=== PATIENT | male | born 1945 | race Caucasian/White ===

== ENCOUNTER 2016-04-11 07:05 | Outpatient (CLI) | payer MEDICARE | END 2016-04-11 07:06 | disposition home or self-care (01) | LOC: NAV LABSP 07:05 | PROVIDERS: ATTEND Internal Medicine | DX: F31.9 Bipolar disorder, unspecified (principal) | CPT/HCPCS: 36415; 84443 ==

== ENCOUNTER 2016-04-14 13:28 | Outpatient (CLI) | payer MEDICARE ==
[2016-04-14 13:48] LABS: Bilirubin Negative (Negative); Blood, Urine Negative (Negative); Glucose, Urine (Dipstick) Negative (Negative); Ketone, Urine Negative (Negative); Nitrite Negative (Negative); Protein, Urine (Dipstick) Negative (Neg-Trace); Urobilinogen 0.2 mg/dL (0.2-1.0)
[2016-04-14 14:14] LABS: Bacteria/HPF Rare-Few HPF (None Seen); RBC/HPF None Seen HPF (0-3); Squamous Epithelial None Seen HPF (0-3); WBC/HPF None Seen HPF (0-3)
== END 2016-04-14 13:29 | disposition home or self-care (01) ==
LOC: NAV NNR 13:28
PROVIDERS: ATTEND Internal Medicine
DX: N39.0 Urinary tract infection, site not specified (principal)
CPT/HCPCS: 81001; 87086

== ENCOUNTER 2016-07-10 15:55 | Outpatient (CLI) | payer MEDICARE ==
[2016-07-10 16:22] LABS: ALT (SGPT) 28 U/L (0-55); AST (SGOT) 23 U/L (5-34); Albumin 3.4 g/dL (3.4-4.8); Alkaline Phosphatase 98 U/L (40-150); Anion Gap 15 mmol/L (10-20); BUN (Urea Nitrogen) 17 mg/dL (8.4-25.7); Bilirubin, Total 0.2 mg/dL (0.2-1.2); Calc. Creatinine Clearance 0 mL/min (70-130); Calcium 8.3 mg/dL (7.8-10.44); Carbon Dioxide 26 mmol/L (23-31); Chloride 106 mmol/L (98-107); Estimated GFR-MDRD Greater than 90; Globulin 2.4 g/dL (2.4-3.5); Glucose 93 mg/dL (83-110); Potassium 4.5 mmol/L (3.5-5.1); Protein, Total 5.8 g/dL (5.8-8.1); Sodium 142 mmol/L (136-145)
[2016-07-10 16:59] LABS: #Basophils 0.1 thou/uL (0.0-0.2); #Eosinphils 0.4 thou/uL (0.0-0.7); #Lymphocytes 2.8 thou/uL (1.20-3.40); #Monocytes 0.8 thou/uL (0.11-0.59); #Neutrophils 2.2 thou/uL (1.40-6.50); %Basophils 1.1 % (0.0-1.0); %Eosinophils 6.5 % (0.0-10.0); %Lymphocytes 44.7 % (21.0-51.0); %Neutrophils 35.7 % (42.0-75.0); Hemoglobin 12.8 g/dL (14.0-18.0); Mean Corpuscular HGB CONC 32.1 g/dL (32.0-36.0); Mean Corpuscular Hemoglobin 31.5 pg (27.0-31.0); Mean Corpuscular Volume 98.1 fl (80.0-94.0); Mean Platelet Volume 8.4 fL (7.4-10.4); Platelet Count 172 thou/uL (130-400); RBC Distribution Width 13.1 % (11.5-14.5); Red Blood Cell (RBC) Count 4.07 mill/uL (4.70-6.10); White Blood Cell (WBC) Count 6.3 thou/uL (4.8-10.8)
== END 2016-07-10 15:56 ==
LOC: NAV NNR 15:55
PROVIDERS: ATTEND Internal Medicine
DX: E78.5 Hyperlipidemia, unspecified (principal); E51.2 Wernicke's encephalopathy; J44.9 Chronic obstructive pulmonary disease, unspecified
CPT/HCPCS: 80053; 84443; 85025

== ENCOUNTER 2016-08-16 09:30 | Outpatient (CLI) | payer MEDICARE ==
[2016-08-16 11:36] LABS: #Basophils 0.1 thou/uL (0.0-0.2); #Eosinphils 0.3 thou/uL (0.0-0.7); #Lymphocytes 2.6 thou/uL (1.20-3.40); #Monocytes 0.7 thou/uL (0.11-0.59); #Neutrophils 2.2 thou/uL (1.40-6.50); %Basophils 1.8 % (0.0-1.0); %Eosinophils 5.4 % (0.0-10.0); %Lymphocytes 43.7 % (21.0-51.0); %Monocytes 11.2 % (0.0-10.0); Hemoglobin 12.9 g/dL (14.0-18.0); Mean Corpuscular Hemoglobin 31.7 pg (27.0-31.0); Mean Platelet Volume 8.4 fL (7.4-10.4); Platelet Count 179 thou/uL (130-400); RBC Distribution Width 13.2 % (11.5-14.5); Red Blood Cell (RBC) Count 4.08 mill/uL (4.70-6.10); White Blood Cell (WBC) Count 5.8 thou/uL (4.8-10.8)
[2016-08-16 11:47] LABS: ALT (SGPT) 34 U/L (8-55); AST (SGOT) 24 U/L (5-34); Albumin 3.4 g/dL (3.4-4.8); Alkaline Phosphatase 81 U/L (40-150); Anion Gap 15 mmol/L (10-20); BUN (Urea Nitrogen) 17 mg/dL (8.4-25.7); Bilirubin, Total 0.3 mg/dL (0.2-1.2); Calc. Creatinine Clearance 0 mL/min (70-130); Calcium 8.4 mg/dL (7.8-10.44); Carbon Dioxide 26 mmol/L (23-31); Chloride 106 mmol/L (98-107); Estimated GFR-MDRD Greater than 90; Globulin 2.3 g/dL (2.4-3.5); Glucose 75 mg/dL (83-110); Potassium 4.4 mmol/L (3.5-5.1); Protein, Total 5.7 g/dL (5.8-8.1); Sodium 143 mmol/L (136-145)
[2016-08-16 17:29] LABS: Dilantin 22.8 ug/mL (10.0-20.0)
== END 2016-08-16 09:31 | disposition home or self-care (01) ==
LOC: NAV LABSP 09:30
PROVIDERS: ATTEND Internal Medicine
DX: F31.9 Bipolar disorder, unspecified (principal); J44.1 Chronic obstructive pulmonary disease with (acute) exacerbation; I25.9 Chronic ischemic heart disease, unspecified; I10 Essential (primary) hypertension; R56.9 Unspecified convulsions
CPT/HCPCS: 36415; 80053; 80185; 85025

== ENCOUNTER 2016-08-19 09:57 | Outpatient (CLI) | payer MEDICARE | END 2016-08-19 09:58 | disposition home or self-care (01) | LOC: NAV LABSP 09:57 | PROVIDERS: ATTEND Internal Medicine | DX: F31.9 Bipolar disorder, unspecified (principal); J44.1 Chronic obstructive pulmonary disease with (acute) exacerbation; I10 Essential (primary) hypertension; R56.9 Unspecified convulsions | CPT/HCPCS: 36415; 80185 ==

== ENCOUNTER 2016-09-10 09:01 | Outpatient (CLI) | payer MEDICARE ==
[2016-09-10 10:30] LABS: #Basophils 0.1 thou/uL (0.0-0.2); #Eosinphils 0.3 thou/uL (0.0-0.7); #Lymphocytes 2.1 thou/uL (1.20-3.40); #Monocytes 0.7 thou/uL (0.11-0.59); #Neutrophils 1.9 thou/uL (1.40-6.50); %Basophils 1.4 % (0.0-1.0); %Eosinophils 5.8 % (0.0-10.0); %Lymphocytes 41.5 % (21.0-51.0); %Neutrophils 37.3 % (42.0-75.0); Hemoglobin 12.5 g/dL (14.0-18.0); Mean Corpuscular HGB CONC 31.8 g/dL (32.0-36.0); Mean Corpuscular Hemoglobin 31.3 pg (27.0-31.0); Mean Corpuscular Volume 98.4 fl (80.0-94.0); Platelet Count 177 thou/uL (130-400); RBC Distribution Width 13.1 % (11.5-14.5); Red Blood Cell (RBC) Count 3.99 mill/uL (4.70-6.10); White Blood Cell (WBC) Count 5.2 thou/uL (4.8-10.8)
[2016-09-10 10:40] LABS: ALT (SGPT) 21 U/L (8-55); AST (SGOT) 17 U/L (5-34); Albumin 3.1 g/dL (3.4-4.8); Alkaline Phosphatase 75 U/L (40-150); Anion Gap 13 mmol/L (10-20); BUN (Urea Nitrogen) 13 mg/dL (8.4-25.7); Bilirubin, Total 0.3 mg/dL (0.2-1.2); Calc. Creatinine Clearance 0 mL/min (70-130); Calcium 8.2 mg/dL (7.8-10.44); Carbon Dioxide 26 mmol/L (23-31); Chloride 107 mmol/L (98-107); Estimated GFR-MDRD Greater than 90; Globulin 2.2 g/dL (2.4-3.5); Glucose 75 mg/dL (83-110); Potassium 3.8 mmol/L (3.5-5.1); Protein, Total 5.3 g/dL (5.8-8.1); Sodium 142 mmol/L (136-145)
== END 2016-09-10 09:02 | disposition home or self-care (01) ==
LOC: NAV LABSP 09:01
PROVIDERS: ATTEND Internal Medicine
DX: E51.2 Wernicke's encephalopathy (principal); I63.531 Cerebral infarction due to unspecified occlusion or stenosis of right posterior cerebral artery
CPT/HCPCS: 36415; 80053; 80185; 85025

== ENCOUNTER 2016-09-17 08:17 | Outpatient (CLI) | payer MEDICARE | END 2016-09-17 08:18 | disposition home or self-care (01) | LOC: NAV LABSP 08:17 | PROVIDERS: ATTEND Internal Medicine | DX: R56.9 Unspecified convulsions (principal) | CPT/HCPCS: 36415; 80185 ==

== ENCOUNTER 2016-10-23 07:14 | Outpatient (CLI) | payer MEDICARE ==
[2016-10-23 09:27] LABS: PSA-Asymptomatic (SCREENING) 0.32 ng/mL (0-4.0); Thyroid Stimulating Hormone 3.1637 uIU/mL (0.35-4.94)
[2016-10-23 11:31] LABS: Band 1 % (5-11); Eosinophils 12 % (0-10); Hemoglobin 12.8 g/dL (14.0-18.0); Lymphocytes 30 % (21-51); MDiff Complete? YES; Mean Corpuscular HGB CONC 32.5 g/dL (32.0-36.0); Mean Corpuscular Hemoglobin 31.5 pg (27.0-31.0); Mean Corpuscular Volume 96.8 fl (80.0-94.0); Mean Platelet Volume 7.7 fL (7.4-10.4); Monocytes 5 % (0-10); Neutrophil 52 % (42-75); PLT Morphology Comment Appears Adequate; Platelet Count 175 thou/uL (130-400); RBC Distribution Width 12.4 % (11.5-14.5); RBC Morphology Normal; Red Blood Cell (RBC) Count 4.08 mill/uL (4.70-6.10); White Blood Cell (WBC) Count 6.4 thou/uL (4.8-10.8)
[2016-10-23 17:38] LABS: ALT (SGPT) 30 U/L (8-55); AST (SGOT) 18 U/L (5-34); Albumin 3.4 g/dL (3.4-4.8); Alkaline Phosphatase 79 U/L (40-150); Anion Gap 15 mmol/L (10-20); BUN (Urea Nitrogen) 13 mg/dL (8.4-25.7); Bilirubin, Total 0.2 mg/dL (0.2-1.2); Calc. Creatinine Clearance 0 mL/min (70-130); Calcium 8.5 mg/dL (7.8-10.44); Carbon Dioxide 25 mmol/L (23-31); Cardiac Risk 2.9 (Less than 4.5); Chloride 107 mmol/L (98-107); Cholesterol 165 mg/dl (< 200 Desired); Estimated GFR-MDRD Greater than 90; Globulin 2.2 g/dL (2.4-3.5); Glucose 84 mg/dL (83-110); HDL Cholesterol 57 mg/dL (>60 Neg Risk); LDL Cholesterol, Calculated 90 mg/dL; Potassium 4.1 mmol/L (3.5-5.1); Protein, Total 5.6 g/dL (5.8-8.1); Sodium 143 mmol/L (136-145); Triglycerides 88 mg/dL (Less than 150)
== END 2016-10-23 07:15 | disposition home or self-care (01) ==
LOC: NAVSJIPCSP 07:14
PROVIDERS: ATTEND Internal Medicine
DX: Z12.5 Encounter for screening for malignant neoplasm of prostate (principal); E78.5 Hyperlipidemia, unspecified; N40.1 Benign prostatic hyperplasia with lower urinary tract symptoms; I25.10 Atherosclerotic heart disease of native coronary artery without angina pectoris
CPT/HCPCS: 80053; 80061; 84443; 85025; G0103

== ENCOUNTER 2016-11-22 09:25 | Outpatient (CLI) | payer MEDICARE ==
[2016-11-22 11:27] LABS: Cardiac Risk 2.9 (Less than 4.5)
== END 2016-11-22 09:26 | disposition home or self-care (01) ==
LOC: NAV LABSP 09:25
PROVIDERS: ATTEND Internal Medicine
DX: I69.90 Unspecified sequelae of unspecified cerebrovascular disease (principal)
CPT/HCPCS: 36415; 80061

== ENCOUNTER 2020-03-01 11:38 | Outpatient (CLI) | payer MEDICARE, OTHER, MEDICAID ==
--- NOTE | 2020-03-01 12:44 | RAD ---
PA AND LATERAL VIEWS CHEST: Date: 03/01/2020 HISTORY: Wheezing and decreased oxygen saturation. COMPARISON: 10/11/2015. FINDINGS: The heart size remains upper limits of normal. Calcified granuloma in the right lower lung is again s een. The aorta is tortuous. No lobar consolidation, pneumothoraces, or pleural effusions are noted. T here are degenerative changes in the spine. IMPRESSION: No acute process. POS: AH
== END 2020-03-01 11:39 | disposition home or self-care (01) ==
LOC: NAV RAD 11:38
PROVIDERS: ATTEND Internal Medicine
DX: R06.2 Wheezing (principal); R09.02 Hypoxemia
CPT/HCPCS: 71046

== ENCOUNTER 2020-03-09 09:25 | Outpatient (CLI) | payer MEDICARE, OTHER ==
--- NOTE | 2020-03-09 10:02 | RAD ---
EXAM: CHEST TWO VIEWS 03/09/2020 9:58 AM HISTORY: Chest pain COMPARISON: Prior exam dated March 01, 2020 FINDINGS: Lungs: There is a calcified granuloma in the right middle lobe. The lungs are otherwise clear. Heart: There is stable cardiomegaly. Pulmonary Vessels: Normal. Costophrenic Angles: Clear. Pneumothorax: None. Osseous Structures: Mild wedge compression fractures involving the mid thoracic spine are stable. Additional Findings: None. IMPRESSION: No significant acute intrathoracic disease.
== END 2020-03-09 09:26 | disposition home or self-care (01) ==
LOC: NAV RAD 09:25
PROVIDERS: ATTEND Internal Medicine
DX: R07.9 Chest pain, unspecified (principal)
CPT/HCPCS: 71046

== ENCOUNTER 2020-03-29 18:09 | Emergency (ER) | payer MEDICARE, OTHER ==
[2020-03-29] MEDS ORDERED: TETANUS, DIPHTHERIA TOX,ADULT (TDVAX) 0.5 ML VIAL IM ONE (18:57)
--- NOTE | 2020-03-29 19:12 | CT ---
Head CT without contrast 03/29/2020: COMPARISON: 10/11/2015 HISTORY: Fall, dementia TECHNIQUE: Axial CT imaging at 5 mm intervals from vertex through skull base without contrast. Waters l and sagittal reformatted imaging obtained FINDINGS: The imaged paranasal sinuses and mastoid air cells are grossly unremarkable. No displaced c alvarial fracture. There is diffuse cerebral volume loss with white matter hypodensity consistent with significant small vessel disease. 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 No intracranial hemorrhage, midline shift, or mass effect. IMPRESSION: No intracranial hemorrhage or displaced calvarial fracture. Chronic findings as detailed above.
--- NOTE | 2020-03-29 19:18 | CT ---
Cervical spine CT without contrast: 03/29/2020 COMPARISON: 07/14/2014 HISTORY: Fall, trauma, pain TECHNIQUE: Axial CT imaging at 2.5 mm intervals through the cervical spine without contrast. Coronal and sagittal reformatted imaging obtained. FINDINGS: The C1 ring, occipital condyles, dens, C1-2 articulation, craniocervical junction, atlantoa xial interval, and cervicothoracic junction demonstrate no acute findings. There is stable minimal anterolisthesis at the C7-T1 level. Stable prominent degenerative change present at the atlantoaxial interspace. There is disc space narrowing with posterior osteophyte at C6-7. There is multilevel bilateral cervical spine facet hypertrophy. Medialized retropharyngeal carotid vasculature are noted bilaterally, right greater than left. The imaged lung apices demonstrate no acute findings. No acute fracture or evidence of dislocation is seen. IMPRESSION: Cervical spine degenerative change with no acute fracture or dislocation seen.
== END 2020-03-29 21:18 ==
LOC: NAV ERS 18:09
DX: S01.81XA Laceration without foreign body of other part of head, initial encounter (principal); F03.90 Unspecified dementia, unspecified severity, without behavioral disturbance, psychotic disturbance, mood disturbance, and anxiety; I10 Essential (primary) hypertension; F17.210 Nicotine dependence, cigarettes, uncomplicated; W18.30XA Fall on same level, unspecified, initial encounter
CPT/HCPCS: 12013; 70450; 72125; 90471; 90714

== ENCOUNTER 2020-06-28 23:02 | Emergency (ER) | payer MEDICARE, MEDICAID ==
[2020-06-28 23:31] LABS: Bilirubin Negative (Negative); Blood, Urine Moderate (Negative); Clarity Turbid (Clear); Glucose, Urine (Dipstick) Negative (Negative); Ketone, Urine Trace mg/dL (Negative); Leukocyte Small (Negative); Nitrite Negative (Negative); Protein, Urine (Dipstick) > or equal to 300 mg/dL (Neg-Trace); Specific Gravity, Urine 1.025 (1.005-1.030); Urobilinogen 0.2 mg/dL (Less than 2)
[2020-06-28 23:41] LABS: RBC/HPF 0-3 HPF (0-3); WBC/HPF Greater Than 50 HPF (0-3)
[2020-06-28 23:42] LABS: Bacteria/HPF 4+ HPF (None Seen)
[2020-06-29 00:06] LABS: ALT (SGPT) 9 U/L (8-55); AST (SGOT) 13 U/L (5-34); Albumin 3.3 g/dL (3.4-4.8); Alkaline Phosphatase 89 U/L (40-110); Anion Gap 18 mmol/L (10-20); BUN (Urea Nitrogen) 17 mg/dL (8.4-25.7); Bilirubin, Total 0.3 mg/dL (0.2-1.2); Calc. Creatinine Clearance 0 mL/min (70-130); Calcium 8.1 mg/dL (7.8-10.44); Carbon Dioxide 22 mmol/L (23-31); Chloride 100 mmol/L (98-107); Globulin 3.1 g/dL (2.4-3.5); Glucose 107 mg/dL (83-110); Potassium 4.2 mmol/L (3.5-5.1); Protein, Total 6.4 g/dL (5.8-8.1); Sodium 136 mmol/L (136-145)
[2020-06-29 00:17] LABS: Anisocytosis MODERATE=16-30 cells (100X) (0-5/hpf); Band 1 % (5-11); Eosinophils 3 % (0-10); Hemoglobin 13.6 g/dL (14.0-18.0); Lymphocytes 16 % (21-51); MDiff Complete? YES; Macrocytosis MODERATE=16-30 cells (100X) (0-5/hpf); Mean Corpuscular HGB CONC 29.8 g/dL (32.0-36.0); Mean Corpuscular Hemoglobin 31.5 pg (27.0-31.0); Mean Platelet Volume 7.7 fL (7.4-10.4); Monocytes 5 % (0-10); Neutrophil 71 % (42-75); Platelet Count 210 thou/uL (130-400); Platelet Morphology Comment Appears Adequate; RBC Distribution Width 14.7 % (11.5-14.5); Reactive Lymphocytes 4 % (0-10); Red Blood Cell (RBC) Count 4.32 mill/uL (4.70-6.10)
[2020-06-29 00:18] LABS: Manual Diff?? YES
[2020-06-29] MEDS ORDERED: Nitrofurantoin Macrocrystal 50 MG CAP ONE (00:23)
[2020-06-29] MEDS ORDERED: Phenazopyridine HCl 97.5 MG TABLET ONE (00:31)
== END 2020-06-29 02:06 ==
LOC: NAV ERS 23:02
DX: N39.0 Urinary tract infection, site not specified (principal); E78.5 Hyperlipidemia, unspecified; I10 Essential (primary) hypertension; J44.9 Chronic obstructive pulmonary disease, unspecified; K21.9 Gastro-esophageal reflux disease without esophagitis; F17.210 Nicotine dependence, cigarettes, uncomplicated; Z79.82 Long term (current) use of aspirin; Z79.899 Other long term (current) drug therapy
CPT/HCPCS: 80053; 81003; 81015; 85025; 87086; 99285

== ENCOUNTER 2020-07-04 11:52 | Observation (INO) | payer MEDICARE, MEDICAID ==
[2020-07-04 12:50] LABS: ALT (SGPT) 6 U/L (8-55); AST (SGOT) 16 U/L (5-34); Albumin 2.9 g/dL (3.4-4.8); Alkaline Phosphatase 87 U/L (40-110); Anion Gap 15 mmol/L (10-20); BUN (Urea Nitrogen) 12 mg/dL (8.4-25.7); Bilirubin, Total 0.2 mg/dL (0.2-1.2); CK (CPK) 31 U/L (30-200); Calc. Creatinine Clearance 0 mL/min (70-130); Calcium 7.5 mg/dL (7.8-10.44); Carbon Dioxide 23 mmol/L (23-31); Chloride 99 mmol/L (98-107); Globulin 2.6 g/dL (2.4-3.5); Lipase 29 U/L (8-78); Potassium 4.4 mmol/L (3.5-5.1); Protein, Total 5.5 g/dL (5.8-8.1); Sodium 133 mmol/L (136-145)
[2020-07-04 12:51] LABS: Hemoglobin 12.8 g/dL (14.0-18.0); MDiff Complete? YES; Mean Corpuscular HGB CONC 30.5 g/dL (32.0-36.0); Mean Corpuscular Hemoglobin 31.3 pg (27.0-31.0); Mean Platelet Volume 6.4 fL (7.4-10.4); Platelet Count 402 thou/uL (130-400); RBC Distribution Width 13.7 % (11.5-14.5)
[2020-07-04 12:54] LABS: Neutrophil 46 % (42-75)
[2020-07-04 12:55] LABS: Eosinophils 1 % (0-10); Lymphocytes 39 % (21-51); Macrocytosis SLIGHT = 6-15 cells (100X) (0-5/hpf); Monocytes 14 % (0-10)
[2020-07-04 12:56] LABS: Glucose 103 mg/dL (83-110)
[2020-07-04 12:56] LABS: Anisocytosis SLIGHT = 6-15 cells (100X) (0-5/hpf)
[2020-07-04] MEDS ORDERED: Sodium Chloride 0.9% 2,000 ML ONE (12:56)
[2020-07-04 13:27] LABS: Bilirubin Small (Negative); Blood, Urine Small (Negative); Clarity Clear (Clear); Glucose, Urine (Dipstick) 100 mg/dL (Negative); Ketone, Urine 15 mg/dL (Negative); Leukocyte Trace (Negative); Nitrite Positive (Negative); Protein, Urine (Dipstick) > or equal to 300 mg/dL (Neg-Trace)
[2020-07-04 13:28] LABS: Bacteria/HPF Rare-Few HPF (None Seen); Squamous Epithelial Greater than 50 HPF (0-3); WBC/HPF None Seen HPF (0-3)
[2020-07-04] MEDS ORDERED: Cefepime 2 GM VIAL ONE (13:42)
[2020-07-04] MEDS ORDERED: Sodium Chloride 0.9% 100 ML ONE (13:42)
[2020-07-04] MEDS ORDERED: Sodium Chloride 0.9% 1,000 ML ONE (14:39)
[2020-07-04 14:45] LABS: SARS-CoV-2 NAA Rapid Test Not Detected (NotDetected)
[2020-07-04 16:59] VITALS: BMI 25.9
[2020-07-04] MEDS ORDERED: Calcium Carbonate 500 MG ChewTAB PO PRN (17:23)
[2020-07-04] MEDS: Dextrose 5 % And 0.9 % NaCl 1,000 ML IV SCH (18:08)
[2020-07-04] MEDS ORDERED: Haloperidol Lactate 5 MG/ML VIAL ONE (18:37)
[2020-07-04] MEDS ORDERED: Haloperidol Lactate 5 MG/ML VIAL IM SCH (18:45)
[2020-07-04] MEDS ORDERED: Dicyclomine 20 MG TAB PO SCH (21:00)
[2020-07-05 05:52] LABS: ALT (SGPT) Less than 6 U/L (8-55); AST (SGOT) 12 U/L (5-34); Albumin 2.4 g/dL (3.4-4.8); Alkaline Phosphatase 71 U/L (40-110); Anion Gap 11 mmol/L (10-20); BUN (Urea Nitrogen) 7 mg/dL (8.4-25.7); Bilirubin, Total 0.1 mg/dL (0.2-1.2); Calc. Creatinine Clearance 105 mL/min (70-130); Calcium 7.2 mg/dL (7.8-10.44); Carbon Dioxide 24 mmol/L (23-31); Chloride 109 mmol/L (98-107); Globulin 2.3 g/dL (2.4-3.5); Glucose 102 mg/dL (83-110); Potassium 3.3 mmol/L (3.5-5.1); Protein, Total 4.7 g/dL (5.8-8.1); Sodium 141 mmol/L (136-145)
[2020-07-05 05:53] LABS: Band 8 % (5-11); Eosinophils 4 % (0-10); Hemoglobin 11.3 g/dL (14.0-18.0); Lymphocytes 33 % (21-51); MDiff Complete? YES; Macrocytosis SLIGHT = 6-15 cells (100X) (0-5/hpf); Mean Corpuscular HGB CONC 30.1 g/dL (32.0-36.0); Mean Corpuscular Hemoglobin 31.3 pg (27.0-31.0); Mean Platelet Volume 6.1 fL (7.4-10.4); Metamyelocyte 2 % (0-0); Monocytes 12 % (0-10); Myelocyte 1 % (0-0); Neutrophil 40 % (42-75); Platelet Count 368 thou/uL (130-400); Platelet Morphology Comment Appears Adequate; RBC Distribution Width 13.9 % (11.5-14.5); White Blood Cell (WBC) Count 6.1 thou/uL (4.8-10.8)
[2020-07-05 08:04] VITALS: BP 100/57; TEMP 97.6
[2020-07-05] MEDS: Dextrose 5 % And 0.9 % NaCl 1,000 ML IV SCH (08:17)
[2020-07-05] MEDS ORDERED: Finasteride 5 MG TAB PO SCH (09:00)
[2020-07-05] MEDS ORDERED: Citalopram 20 MG TAB PO SCH (09:00)
[2020-07-05] MEDS ORDERED: Aspirin 325 MG TAB PO SCH (09:00)
== END 2020-07-05 08:00 ==
LOC: NAV ERS 11:52 → NAV ACUTE 16:08
PROVIDERS: ADMIT Internal Medicine; ATTEND Internal Medicine
DX: E86.0 Dehydration (principal); I95.9 Hypotension, unspecified; F03.91 Unspecified dementia, unspecified severity, with behavioral disturbance; J44.9 Chronic obstructive pulmonary disease, unspecified; N40.0 Benign prostatic hyperplasia without lower urinary tract symptoms; N39.0 Urinary tract infection, site not specified; I10 Essential (primary) hypertension; E78.5 Hyperlipidemia, unspecified; I25.10 Atherosclerotic heart disease of native coronary artery without angina pectoris; Z79.899 Other long term (current) drug therapy; Z88.8 Allergy status to other drugs, medicaments and biological substances; Z20.822 Contact with and (suspected) exposure to COVID-19
CPT/HCPCS: 0240U; 51701; 70450; 71045; 80053; 80164; 80185; 81003; 81015; 82140; 82550; 83605; 83690; 84484; 85025; 87040; 87086; 93005; 96365; 96372; G0378; J0692; J1630; J3490; J7042; J7050

== ENCOUNTER 2020-07-11 09:07 | Outpatient (CLI) | payer MEDICARE, MEDICAID ==
[2020-07-11 14:15] LABS: Troponin I Less than 0.010 ng/mL (< 0.028)
== END 2020-07-11 09:08 | disposition home or self-care (01) ==
LOC: NAV RAD 09:07
PROVIDERS: ATTEND Internal Medicine
DX: I50.9 Heart failure, unspecified (principal); R60.0 Localized edema; R00.0 Tachycardia, unspecified
CPT/HCPCS: 36415; 71046; 83880; 84484

== ENCOUNTER 2020-12-06 13:10 | Emergency (ER) | payer MEDICARE, OTHER | END 2020-12-06 14:30 | LOC: NAV ERS 13:10 | DX: S02.2XXA Fracture of nasal bones, initial encounter for closed fracture (principal); S60.211A Contusion of right wrist, initial encounter; E78.5 Hyperlipidemia, unspecified; I10 Essential (primary) hypertension; J44.9 Chronic obstructive pulmonary disease, unspecified; K21.9 Gastro-esophageal reflux disease without esophagitis; W19.XXXA Unspecified fall, initial encounter | CPT/HCPCS: 70450; 70486; 72125 ==

== ENCOUNTER 2021-02-06 16:58 | Emergency (ER) | payer MEDICARE, OTHER, MEDICAID | END 2021-02-06 18:52 | LOC: NAV ERS 16:58 | DX: R68.84 Jaw pain (principal); G89.29 Other chronic pain; R22.0 Localized swelling, mass and lump, head; E78.5 Hyperlipidemia, unspecified; N40.0 Benign prostatic hyperplasia without lower urinary tract symptoms; I25.10 Atherosclerotic heart disease of native coronary artery without angina pectoris; I10 Essential (primary) hypertension; J44.9 Chronic obstructive pulmonary disease, unspecified; K21.9 Gastro-esophageal reflux disease without esophagitis; Z79.899 Other long term (current) drug therapy; Z79.82 Long term (current) use of aspirin | CPT/HCPCS: 70486 ==

== ENCOUNTER 2022-10-18 10:33 | Emergency (ER) | payer MEDICARE, OTHER, MEDICAID ==
[2022-10-18] MEDS ORDERED: Acetaminophen 500 MG TAB ONE (12:04)
== END 2022-10-18 14:57 ==
LOC: NAV ERS 10:33
DX: M54.2 Cervicalgia (principal); E78.5 Hyperlipidemia, unspecified; I10 Essential (primary) hypertension; I25.10 Atherosclerotic heart disease of native coronary artery without angina pectoris; J44.9 Chronic obstructive pulmonary disease, unspecified; Z79.82 Long term (current) use of aspirin
CPT/HCPCS: 99283

== ENCOUNTER 2023-04-20 14:54 | Emergency (ER) | payer MEDICARE, MEDICAID ==
[2023-04-20 15:25] LABS: Bilirubin Small (Negative); Blood, Urine Large (Negative); Ketone, Urine Trace mg/dL (Negative); Leukocyte Small (Negative); Protein, Urine (Dipstick) > or equal to 300 mg/dL (Neg-Trace); Specific Gravity, Urine 1.025 (1.005-1.030); Urobilinogen 0.2 mg/dL (Less than 2)
[2023-04-20 15:26] LABS: Clarity Clear (Clear)
[2023-04-20 15:27] LABS: Glucose, Urine (Dipstick) Negative (Negative); Nitrite Negative (Negative)
[2023-04-20 15:34] LABS: CAUTI Indications for Culture Acute Hematuria; WBC/HPF Greater Than 50 HPF (0-3)
[2023-04-20 15:35] LABS: Bacteria/HPF 3+ HPF (None Seen)
[2023-04-20 15:49] LABS: Urine Culture Reflex Yes Yes
[2023-04-20 15:51] LABS: #Basophils 0.1 thou/uL (0.0-0.2); #Eosinphils 0.3 thou/uL (0.0-0.7); #Lymphocytes 2.3 thou/uL (1.20-3.40); #Monocytes 1.7 thou/uL (0.11-0.59); #Neutrophils 9.1 thou/uL (1.40-6.50); %Basophils 0.7 % (0.0-1.0); %Eosinophils 2.2 % (0.0-10.0); %Lymphocytes 16.7 % (21.0-51.0); %Monocytes 12.6 % (0.0-10.0); %Neutrophils 67.8 % (42.0-75.0); Hematocrit 44.5 % (42.0-52.0); Hemoglobin 14.8 g/dL (14.0-18.0); Mean Corpuscular HGB CONC 33.1 g/dL (32.0-36.0); Mean Corpuscular Volume 93.5 fl (78.0-98.0); Mean Platelet Volume 8.7 fL (7.4-10.4); Platelet Count 288 10x3/uL (130-400); RBC Distribution Width 12.4 % (11.5-14.5); Red Blood Cell (RBC) Count 4.76 mill/uL (4.70-6.10); White Blood Cell (WBC) Count 13.5 10x3/uL (4.8-10.8)
[2023-04-20 15:56] LABS: SARS-CoV-2 NAA Rapid Test Not Detected (NotDetected)
[2023-04-20] MEDS ORDERED: cefTRIAXone (ROCEPHIN) 2 GM VIAL ONE (16:00)
[2023-04-20] MEDS ORDERED: Sodium Chloride 0.9% 1,000 ML ONE (16:00)
[2023-04-20] MEDS ORDERED: cefTRIAXone (ROCEPHIN) 1 GM VIAL ONE (16:02)
[2023-04-20 16:07] LABS: Chloride 100 mmol/L (98-107); Potassium 4.2 mmol/L (3.5-5.1); Sodium 137 mmol/L (136-145)
[2023-04-20 16:12] LABS: ALT (SGPT) 17 U/L (8-55); AST (SGOT) 20 U/L (5-34); Albumin 3.9 g/dL (3.4-4.8); Alkaline Phosphatase 76 U/L (40-110); Anion Gap 14 mmol/L (10-20); BUN (Urea Nitrogen) 16 mg/dL (8.4-25.7); Bilirubin, Total 0.3 mg/dL (0.2-1.2); Calc. Creatinine Clearance 0 mL/min (70-130); Calcium 8.8 mg/dL (7.8-10.44); Carbon Dioxide 27 mmol/L (23-31); Estimated GFR 89; Globulin 2.8 g/dL (2.4-3.5); Glucose 105 mg/dL (83-110); Protein, Total 6.7 g/dL (5.8-8.1)
== END 2023-04-20 17:40 ==
LOC: NAV ERS 14:54
DX: N39.0 Urinary tract infection, site not specified (principal); R33.9 Retention of urine, unspecified; I10 Essential (primary) hypertension; E78.5 Hyperlipidemia, unspecified; J44.9 Chronic obstructive pulmonary disease, unspecified; Z79.899 Other long term (current) drug therapy
CPT/HCPCS: 36415; 51702; 80053; 81001; 85025; 87077; 87081; 87086; 87430; 93005; 96361; 96374; J0696; J7050